=== PATIENT | female | born 1980 | race Caucasian/White ===

== ENCOUNTER 2017-10-18 13:26 | Emergency (ER) | payer OTHER, SELFPAY | END 2017-10-18 14:04 | disposition home or self-care (01) | LOC: SCSER 13:26 | DX: H60.501 Unspecified acute noninfective otitis externa, right ear (principal); J06.9 Acute upper respiratory infection, unspecified; F17.210 Nicotine dependence, cigarettes, uncomplicated | CPT/HCPCS: 99282 ==